=== PATIENT | male | born 1960 | race African-American/Black ===

== ENCOUNTER 2021-07-31 21:02 | Emergency (ER) | payer SELFPAY ==
[~2021-07-31] VITALS: Ht 177.8 cm; Wt 84.0 kg
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
[2021-07-31] MEDS ORDERED: CYCL10TA19 PO (23:37)
[2021-07-31] MEDS ORDERED: TRAM-48 PO ×2 (23:37→23:38)
[2021-08-01 00:03] VITALS: BP 174/83
== END 2021-08-01 00:06 | disposition home or self-care (01) ==
LOC: ER 21:02
DX: S00.93XA Contusion of unspecified part of head, initial encounter (principal); M54.6 Pain in thoracic spine; V43.52XA Car driver injured in collision with other type car in traffic accident, initial encounter; Y93.89 Activity, other specified; Y92.488 Other paved roadways as the place of occurrence of the external cause; Y99.8 Other external cause status
CPT/HCPCS: 70450; 72125; 72128; 99284-25